=== PATIENT | female | born 1985 | race Caucasian/White ===

== ENCOUNTER 2017-10-28 12:53 | Outpatient (CLI) | payer BC ==
[2017-10-28] MEDS ORDERED: IOHEXOL 50 ML IV ONE (13:18)
== END 2017-10-28 20:51 | disposition home or self-care (01) ==
LOC: SRD 12:53
PROVIDERS: ATTEND Obstetrics & Gynecology
DX: N97.9 Female infertility, unspecified (principal)
CPT/HCPCS: 58340; 74740; Q9967